=== PATIENT | female | born 1950 | race Caucasian/White ===

== ENCOUNTER 2016-06-30 15:48 | Emergency (ER) | payer OTHER, MEDICAID ==
[2016-06-30 16:01] VITALS: PULSE 83; RESP 16; TEMP 98.2; O2SAT 92
[2016-06-30] MEDS ORDERED: PROPARACAINE 0.5% 15 ML OPHT DROP ONE (16:16)
[2016-06-30] MEDS ORDERED: FLUORESCEIN SODIUM 1 MG STRIP OP ONE (16:16)
--- NOTE | 2016-06-30 16:30 | EDPHY ---
HPI/HX/ROS/PE/MDM Narrative: CHIEF COMPLAINT: Right eye pain HISTORY OF PRESENT ILLNESS: This patient is a Albanian-speaking 66 year old female complaining of right eye pain for the last five days. Her pain is localized to a small lump on her conjunctiva lateral to her cornea. She cannot identify any obvious precipitating event, but reports she could have poked her eye with eyeliner. She denies problems with her vision, general ocular pain or pressure, or fever. She denies any similar past occurrence or previous history of eye issues or chronic eye problems including glaucoma, hypertension, diabetes, or heart disease. She denies other HEENT symptoms such as ear or throat pain. No fever, chills, chest pain, shortness of breath, palpitations, vomiting, diarrhea, urinary complaints, headache, or lightheadedness. HPI obtained partially through her son, translating over the phone. REVIEW OF SYSTEMS: Aside from elements discussed in the HPI, a comprehensive 10-point review of systems was reviewed and is negative, given the constraints of the language barrier urine utilizing her son as a electronic intelligence officer.. PAST MEDICAL HISTORY: Denies. SOCIAL HISTORY: Albanian speaking. Son translated via phone. GENERAL: Well-developed, well-nourished, resting comfortably in no respiratory distress. Visual Acuity: noted from Nurse's notes. Focused examination of the right eye. Eyelid: No edema, erythema or swelling. Pupils: 3mm, equal, round and reactive to light, EOMI Conjunctivae: Lateral injection, no discharge. 2x2mm cystic structure of the conjunctiva lateral to the cornea. Cornea: Exam with fluorescein shows no abrasions. Anterior chamber: Normal, no hyphema or hypopyon Skin: No proptosis, no periorbital erythema or swelling, no vesicles. NEURO: Alert and oriented, grossly nonfocal. PSYCHIATRIC: Normal mentation, no agitation. Portions of this note were transcribed by a certified medical assistant. I personally performed a history, physical exam, medical decision making, and confirmed accuracy of information the transcribed note. ED Course: This patient is a 66 y/o female presenting with a 5 day history of localized right eye pain. On exam, she has a 2x2mm cystic structure of the conjunctiva lateral to the cornea. No corneal abrasion on SLIT lamp exam. Proparacaine relieved her pain. Plan to consult ophthalmology for treatment plan. 16:42 Phone consult with on-call market researcher, Dr. Loja. With the patient' s permission, a picture of the affected eye was sent to Dr. Loja. 17:05 He reviewed the photo and reports it is a conjunctival cyst. He recommends treating with artificial tears 4-6 times per day. She can follow up as an outpatient with him this week if she would like the cyst drained. She has been given OTC Tylenol and ibuprofen instructions to use as needed for pain. Strict return precautions discussed. MDM: Differential diagnoses for the patient's symptom complex was considered including but not limited to conjunctival cyst, scleral abrasion, scleral cyst, allergic reaction, open globe, scleral laceration, conjunctival laceration. General Time Seen by Provider: 06/30/16 16:05 Initial Vital Signs: Initial Vital Signs Temperature (C) 36.8 C 06/30/16 15:59 Heart Rate 83 06/30/16 15:59 Respiratory Rate 16 06/30/16 15:59 Blood Pressure 114/74 06/30/16 15:59 O2 Sat (%) 92 06/30/16 15:59 O2 Delivery Mode Room Air Allergies/Adverse Reactions: acetaminophen [From Percocet] Allergy (Unknown, Verified 03/28/14 10:34) Unknown ascorbic acid [Ascorbic Acid] Allergy (Unknown, Verified 03/28/14 10:34) Rash oxycodone HCl [From Percocet] Allergy (Unknown, Verified 03/28/14 10:34) Unknown Home Medications: Medication Instructions Recorded Atorvastatin Calcium [Lipitor] 0 mg PO DAILY 11/03/10 Sertraline HCl [Zoloft] 25 mg PO DAILY 11/03/10 Zolpidem Tartrate [Ambien] 0 mg PO 11/03/10 risperiDONE [Risperdal] 0 mg PO DAILY 11/03/10 Departure - Departure Disposition: Home, Routine, Self-Care Clinical Impression: Conjunctival cyst of right eye Condition: Good Instructions: Eye Pain (ED) Additional Instructions: 1. Apply artificial tears 4-6 times per day as directed. 2. Take Tylenol or ibuprofen as directed on the packaging as needed for pain for the next 3-4 days. 3. Follow up with Dr. Loja, market researcher, this week if you would like the cyst drained. 4. Return to the ED for severe pain, changes in vision, or other worsening of condition. Referrals: NONE *PRIMARY CARE P,. [Primary Care Provider] - As per Instructions Milton Loja MD [Medical Doctor] - As per Instructions Print Language: Albanian Report Scribed for: Fallon Moore Report Scribed by: Arlette Suazo Date of Report: 06/30/16 Time of Report: 17:38
[2016-06-30 17:45] VITALS: BP 114/85
== END 2016-06-30 17:44 | disposition home or self-care (01) ==
DX: H11.441 Conjunctival cysts, right eye (principal)

== ENCOUNTER → 2018-02-01 | Outpatient (CLI) | payer OTHER, MEDICAID | LOC: BMCIMAGING 15:09 | PROVIDERS: ATTEND Podiatrist Foot & Ankle Surgery | DX: M21.42 Flat foot [pes planus] (acquired), left foot (principal) ==